=== PATIENT | female | born 1980 | race Caucasian/White ===

== ENCOUNTER 2020-12-28 14:20 | Emergency (ER) | payer MEDICAID ==
--- NOTE | 2020-12-28 14:43 | EDM.PDOC ---
ED HPI GENERAL MEDICAL PROBLEM - General Chief Complaint: Abdominal Pain Stated Complaint: AMBULANCE Time Seen by Provider: 12/28/20 14:42 Source of Information: Reports: Patient, EMS, Old Records, RN, RN Notes Reviewed History Limitations: Reports: No Limitations - History of Present Illness INITIAL COMMENTS - FREE TEXT/NARRATIVE: Pt arrives to ER by ambulance with c/o right flank pain, N/V/D, and generalized upper abdominal pain that began 4 days ago. Pt states pain started the day after she had a sore throat and chills. She admits to generalized body aches. Admits to difficulty keeping food and liquids down. Pt states she feels cool to touch, and has clammy skin. Denies chest pain or shortness of breath. She is worried about COVID. Duration: Day(s): (4), Constant Location: Reports: Abdomen, Back Quality: Reports: Ache Severity: Moderate Improves with: Reports: None Worsens with: Reports: Eating Associated Symptoms: Reports: No Other Symptoms - Related Data Allergies Allergy/AdvReac Type Severity Reaction Status Date / Time No Known Allergies Allergy Verified 12/28/20 15:10 Home Meds: Home Meds Clindamycin HCl 300 mg PO Q6H 9 Days #36 capsule 04/22/20 [Rx] DULoxetine [Cymbalta] 30 mg PO DAILY 04/22/20 [History] DULoxetine [Cymbalta] 60 mg PO DAILY 04/22/20 [History] Gabapentin [Neurontin] 1,200 mg PO TID 04/22/20 [History] Hydrocodone/Acetaminophen [[place] 5-325 Tablet] 1 each PO Q6H PRN #10 tablet 04/22/20 [Rx] Losartan [Cozaar] 50 mg PO DAILY 04/22/20 [History] atorvaSTATin [Lipitor] 10 mg PO BEDTIME 04/22/20 [History] cloNIDine [Catapres] 0.2 mg PO TID 04/22/20 [History] cloNIDine [Catapres] 0.3 mg PO DAILY 04/22/20 [History] glipiZIDE [Glipizide ER] 5 mg PO DAILY 04/22/20 [History] hydrOXYzine pamoate [Hydroxyzine Pamoate] 50 mg PO DAILY PRN 04/22/20 [History] metFORMIN HCl [Metformin HCl ER] 500 mg PO DAILY 04/22/20 [History] Acetaminophen [Tylenol Extra Strength] 1,000 mg PO QAM 09/13/20 [History] Acetaminophen [Tylenol Extra Strength] 1,500 mg PO ASDIRECTED 09/13/20 [History] Cyclobenzaprine [Flexeril] 5 mg PO ASDIRECTED PRN 09/13/20 [History] DULoxetine [Cymbalta] 30 mg PO DAILY 09/13/20 [History] DULoxetine [Cymbalta] 60 mg PO QPM 09/13/20 [History] Gabapentin [Neurontin] 1,200 mg PO TID 09/13/20 [History] Losartan [Cozaar] 25 mg PO DAILY 09/13/20 [History] Promethazine HCl/Codeine [Promethazine-Codeine Syrup] 10 ml PO Q8H PRN #240 ml 09/13/20 [Rx] atorvaSTATin [Lipitor] 10 mg PO BEDTIME 09/13/20 [History] cloNIDine [Catapres] 0.2 mg PO DAILY 09/13/20 [History] hydrOXYzine HCL [hydrOXYzine] 50 mg PO ASDIRECTED PRN 09/13/20 [History] Past Medical History HEENT History: Reports: None Cardiovascular History: Reports: Hypertension Respiratory History: Reports: Asthma, Bronchitis, Recurrent Gastrointestinal History: Reports: GERD, Other (See Below) Other Gastrointestinal History: "liver function not doing well according to her Dr back home" Genitourinary History: Reports: Neurogenic Bladder WATER RESOURCE 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 WATER RESOURCE SPECIALIST History: c-sections x 4 Musculoskeletal History: Reports: Fracture, Other (See Below) Other Musculoskeletal History: 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 Neurological History: Reports: Neuropathy, Peripheral Psychiatric History: Reports: Anxiety, Depression, Panic Attack Endocrine/Metabolic History: Reports: Diabetes, Type II, Obesity/BMI 30+ - Past Surgical History GI Surgical History: Reports: Cholecystectomy Social & Family History - Family History Family Medical History: No Pertinent Family History - Tobacco Use Tobacco Use Status *Q: Current Every Day Tobacco User Tobacco Use Within Last Twelve Months: Cigarettes - Caffeine Use Caffeine Use: Reports: Coffee, None, Soda - Living Situation & Occupation Living situation: Reports: with Family ED ROS GENERAL - Review of Systems Review Of Systems: Comprehensive ROS is negative, except as noted in HPI. ED EXAM, GI/ABD - Physical Exam Exam: See Below Exam Limited By: No Limitations General Appearance: Alert, No Apparent Distress, Obese. No: Active Emesis Eyes: Bilateral: Normal Appearance Ears: Normal External Exam, Normal Canal, Hearing Grossly Normal, Normal TMs Nose: Normal Inspection, Normal Mucosa, No Blood Throat/Mouth: Normal Lips, Normal Oropharynx, Normal Voice, No Airway Compromise, Other (Dry oral mucosa) Head: Atraumatic, Normocephalic Neck: Normal Inspection, Supple, Non-Tender, Full Range of Motion. No: Lymphadenopathy (L), Lymphadenopathy (R) Respiratory/Chest: No Respiratory Distress, Lungs Clear, Normal Breath Sounds, No Accessory Muscle Use, Chest Non-Tender Cardiovascular: Regular Rate, Rhythm, Tachycardia GI/Abdominal Exam: Normal Bowel Sounds, Soft, Tender (RUQ and RLQ ). No: Guarding, Rigid, Rebound Back Exam: CVA Tenderness (R). No: CVA Tenderness (L), Vertebral Tenderness Extremities: Normal Range of Motion, Non-Tender, Normal Capillary Refill, Pedal Edema Neurological: Alert, Oriented, No Motor/Sensory Deficits Psychiatric: Normal Mood Skin Exam: Warm, Dry, Intact, Normal Color, No Rash Course - Vital Signs Last Recorded V/S: Last Vital Signs Temp 95.4 F L 12/28/20 15:01 Pulse 85 12/28/20 15:01 Resp 20 12/28/20 15:01 BP 143/112 H 12/28/20 15:01 Pulse Ox 96 12/28/20 15:01 - Orders/Labs/Meds Orders: Active Orders 24 hr Category Date Time Status CULTURE STREP A CONFIRMATION [] Stat Lab 12/28/20 15:20 Results CULTURE URINE [] Stat Lab 12/28/20 15:35 Received STREP SCRN A RAPID W CULT CONF [] Stat Lab 12/28/20 15:20 Results cefTRIAXone [Rocephin] 2 gm Med 12/28/20 16:14 Active Sodium Chloride 0.9% [Normal Saline] 100 ml IV ONETIME Labs: Laboratory Tests 12/28/20 12/28/20 12/28/20 Range/Units 15:20 15:35 15:35 WBC (5.0-10.0) 10^3/uL RBC (4.2-5.4) 10^6/uL Hgb (12.0-16.0) g/dL Hct (37.0-47.0) % MCV (80-100) fL MCH (27.0-34.0) pg MCHC (33.0-35.0) g/dL Plt Count (150-450) 10^3/uL Neut % (Auto) (42.2-75.2) % Lymph % (Auto) (20.5-50.1) % [place] % (Auto) (2-8) % Eos % (Auto) (1.0-3.0) % Baso % (Auto) (0.0-1.0) % D-Dimer, Quantitative (0-400) ng/mL Sodium (136-145) mmol/L Potassium (3.5-5.1) mmol/L Chloride (98-107) mmol/L Carbon Dioxide (21-32) mmol/L Anion Gap (7-13) mEq/L BUN (7-18) mg/dL Creatinine (0.55-1.02) mg/dL Est Cr Clr Drug Dosing mL/min Estimated GFR (MDRD) BUN/Creatinine Ratio (No establ ref range) Glucose (74-99) mg/dL Lactic Acid (0.4-2.0) mmol/L Calcium (8.5-10.1) mg/dL Total Bilirubin (0.2-1.0) mg/dL AST (15-37) U/L ALT (14-59) U/L Alkaline Phosphatase (46-116) U/L C-Reactive Protein (0.0-0.9) mg/dL Total Protein (6.4-8.2) g/dL Albumin (3.4-5.0) g/dL Globulin Albumin/Globulin Ratio Amylase (25-115) U/L Lipase (73-393) U/L Urine Color Yellow (YELLOW) Urine Appearance Turbid (CLEAR) Urine pH 7.0 (5.0-9.0) Ur Specific [place] 1.020 (1.005-1.030) Urine Protein Negative (NEGATIVE) Urine Glucose (UA) Negative (NEGATIVE) Urine Ketones 15 H (NEGATIVE) Urine Occult Blood Small H (NEGATIVE) Urine Nitrite Positive H (NEGATIVE) Urine Bilirubin Negative (NEGATIVE) Urine Urobilinogen 0.2 (0.2-1.0) mg/dL Ur Leukocyte Esterase Negative (NEGATIVE) Urine RBC 10-20 H /HPF Urine WBC 5-10 H (0-5/HPF) /HPF Ur Epithelial Cells Few (NOT SEEN) /HPF Amorphous Sediment Few (NOT SEEN) /HPF Urine Bacteria Many H (0-FEW/HPF) /HPF Urine Mucus Few H (NOT SEEN) /LPF Urine HCG, Qual Negative Influenza Type A RNA Negative (NEGATIVE) Influenza Type B RNA Negative (NEGATIVE) SARS-CoV-2 RNA (JEANIE) Negative (NEGATIVE) 12/28/20 12/28/20 12/28/20 Range/Units 15:46 15:46 15:46 WBC 13.7 H (5.0-10.0) 10^3/uL RBC 5.32 (4.2-5.4) 10^6/uL Hgb 13.6 (12.0-16.0) g/dL Hct 44.2 (37.0-47.0) % MCV 83.1 (80-100) fL MCH 25.6 L (27.0-34.0) pg MCHC 30.8 L (33.0-35.0) g/dL Plt Count 379 (150-450) 10^3/uL Neut % (Auto) 70.6 (42.2-75.2) % Lymph % (Auto) 22.7 (20.5-50.1) % [place] % (Auto) 4.8 (2-8) % Eos % (Auto) 1.3 (1.0-3.0) % Baso % (Auto) 0.6 (0.0-1.0) % D-Dimer, Quantitative 287 (0-400) ng/mL Sodium 142 (136-145) mmol/L Potassium 3.8 (3.5-5.1) mmol/L Chloride 102 (98-107) mmol/L Carbon Dioxide 26 (21-32) mmol/L Anion Gap 17.8 H (7-13) mEq/L BUN 8 (7-18) mg/dL Creatinine 0.85 (0.55-1.02) mg/dL Est Cr Clr Drug Dosing 77.58 mL/min Estimated GFR (MDRD) > 60 BUN/Creatinine Ratio 9.4 (No establ ref range) Glucose 106 H (74-99) mg/dL Lactic Acid (0.4-2.0) mmol/L Calcium 8.9 (8.5-10.1) mg/dL Total Bilirubin 0.4 (0.2-1.0) mg/dL AST 31 (15-37) U/L ALT 23 (14-59) U/L Alkaline Phosphatase 127 H (46-116) U/L C-Reactive Protein 5.8 H (0.0-0.9) mg/dL Total Protein 9.2 H (6.4-8.2) g/dL Albumin 3.5 (3.4-5.0) g/dL Globulin 5.7 Albumin/Globulin Ratio 0.6 Amylase 35 (25-115) U/L Lipase 93 (73-393) U/L Urine Color (YELLOW) Urine Appearance (CLEAR) Urine pH (5.0-9.0) Ur Specific [place] (1.005-1.030) Urine Protein (NEGATIVE) Urine Glucose (UA) (NEGATIVE) Urine Ketones (NEGATIVE) Urine Occult Blood (NEGATIVE) Urine Nitrite (NEGATIVE) Urine Bilirubin (NEGATIVE) Urine Urobilinogen (0.2-1.0) mg/dL Ur Leukocyte Esterase (NEGATIVE) Urine RBC /HPF Urine WBC (0-5/HPF) /HPF Ur Epithelial Cells (NOT SEEN) /HPF Amorphous Sediment (NOT SEEN) /HPF Urine Bacteria (0-FEW/HPF) /HPF Urine Mucus (NOT SEEN) /LPF Urine HCG, Qual Influenza Type A RNA (NEGATIVE) Influenza Type B RNA (NEGATIVE) SARS-CoV-2 RNA (JEANIE) (NEGATIVE) 12/28/20 Range/Units 15:46 WBC (5.0-10.0) 10^3/uL RBC (4.2-5.4) 10^6/uL Hgb (12.0-16.0) g/dL Hct (37.0-47.0) % MCV (80-100) fL MCH (27.0-34.0) pg MCHC (33.0-35.0) g/dL Plt Count (150-450) 10^3/uL Neut % (Auto) (42.2-75.2) % Lymph % (Auto) (20.5-50.1) % [place] % (Auto) (2-8) % Eos % (Auto) (1.0-3.0) % Baso % (Auto) (0.0-1.0) % D-Dimer, Quantitative (0-400) ng/mL Sodium (136-145) mmol/L Potassium (3.5-5.1) mmol/L Chloride (98-107) mmol/L Carbon Dioxide (21-32) mmol/L Anion Gap (7-13) mEq/L BUN (7-18) mg/dL Creatinine (0.55-1.02) mg/dL Est Cr Clr Drug Dosing mL/min Estimated GFR (MDRD) BUN/Creatinine Ratio (No establ ref range) Glucose (74-99) mg/dL Lactic Acid 1.8 (0.4-2.0) mmol/L Calcium (8.5-10.1) mg/dL Total Bilirubin (0.2-1.0) mg/dL AST (15-37) U/L ALT (14-59) U/L Alkaline Phosphatase (46-116) U/L C-Reactive Protein (0.0-0.9) mg/dL Total Protein (6.4-8.2) g/dL Albumin (3.4-5.0) g/dL Globulin Albumin/Globulin Ratio Amylase (25-115) U/L Lipase (73-393) U/L Urine Color (YELLOW) Urine Appearance (CLEAR) Urine pH (5.0-9.0) Ur Specific [place] (1.005-1.030) Urine Protein (NEGATIVE) Urine Glucose (UA) (NEGATIVE) Urine Ketones (NEGATIVE) Urine Occult Blood (NEGATIVE) Urine Nitrite (NEGATIVE) Urine Bilirubin (NEGATIVE) Urine Urobilinogen (0.2-1.0) mg/dL Ur Leukocyte Esterase (NEGATIVE) Urine RBC /HPF Urine WBC (0-5/HPF) /HPF Ur Epithelial Cells (NOT SEEN) /HPF Amorphous Sediment (NOT SEEN) /HPF Urine Bacteria (0-FEW/HPF) /HPF Urine Mucus (NOT SEEN) /LPF Urine HCG, Qual Influenza Type A RNA (NEGATIVE) Influenza Type B RNA (NEGATIVE) SARS-CoV-2 RNA (JEANIE) (NEGATIVE) - Radiology Interpretation Free Text/Narrative:: XR Chest: no acute process per Rad. report. Departure - Departure Time of Disposition: 17:30 Disposition: Home, Self-Care 01 Condition: Good Clinical Impression: Acute pyelonephritis, Dehydration - Discharge Information *PRESCRIPTION DRUG MONITORING PROGRAM REVIEWED*: Not Applicable *COPY OF PRESCRIPTION DRUG MONITORING REPORT IN PATIENT LEDA: Not Applicable Instructions: Pyelonephritis, Adult, [id number], Nausea and Vomiting, Adult, [id number], Dehydration, Adult, [id number] Forms: ED Department Discharge Additional Instructions: Rx: Cipro 500mg Rx: Zofran 4mg Drink plenty of water or Pedialyte. Follow up in clinic in 7 to 10 days for recheck and repeat urine test. Return to ER or clinic if not improving as expected. Sepsis Event Note (ED) - Focused Exam Vital Signs: Vital Signs Temp Pulse Resp BP Pulse Ox 12/28/20 15:01 95.4 F L 85 20 143/112 H 96 - My Orders Last 24 Hours: My Active Orders 12/28/20 15:20 CULTURE STREP A CONFIRMATION [RM] Stat STREP SCRN A RAPID W CULT CONF [RM] Stat 12/28/20 15:35 CULTURE URINE [RM] Stat 12/28/20 16:14 cefTRIAXone [Rocephin] 2 gm Sodium Chloride 0.9% [Normal Saline] 100 ml IV ONETIME - Assessment/Plan Last 24 Hours: My Active Orders 12/28/20 15:20 CULTURE STREP A CONFIRMATION [RM] Stat STREP SCRN A RAPID W CULT CONF [RM] Stat 12/28/20 15:35 CULTURE URINE [RM] Stat 12/28/20 16:14 cefTRIAXone [Rocephin] 2 gm Sodium Chloride 0.9% [Normal Saline] 100 ml IV ONETIME
[2020-12-28] MEDS ORDERED: Ondansetron 4 MG/2 ML SDV IV ONE ×2 (15:20→17:01)
[2020-12-28] MEDS ORDERED: Sodium Chloride 0.9% 1,000 ML IV ONE (15:20)
--- NOTE | 2020-12-28 15:43 | CR ---
EXAMINATION: Chest 1V Frontal SEX: Female AGE: 40 years CLINICAL HISTORY: 40-year-old female with cough and fever. Interpretation: Generally poor inspiratory effort obese female crowding lung markings. AP bony thorax unremarkable. Normal cardiac silhouette unchanged except for technique and inspiration since 24 May 2012 comparison. No pulmonary vascular congestion, alveolar edema or dependent pleural effusion. No new lung mass, hilar lymphadenopathy or focal lobar consolidation. No peripheral "groundglass" interstitial densities. No pneumothorax or pneumomediastinum. CONCLUSION: No acute new cardiopulmonary abnormality.
[2020-12-28 16:10] LABS: CORONAVIRUS COVID-19 NAA NEGATIVE (NEGATIVE)
[2020-12-28 16:11] LABS: ANION GAP 17.8 mEq/L (7-13); CHLORIDE,CL 102 mmol/L (98-107); SODIUM,NA 142 mmol/L (136-145)
[2020-12-28] MEDS ORDERED: cefTRIAXone 2 GM in Sodium Chloride 0.9% 100 ML IV ONE (16:14)
[2020-12-28] MEDS ORDERED: Acetaminophen 325 MG Tab PO ONE (16:15)
[2020-12-28] MEDS ORDERED: HYDROmorphone 0.5 MG/0.5 ML Syringe IVPUSH ONE (16:16)
== END 2020-12-28 17:45 | disposition home or self-care (01) ==
LOC: DL.ED 14:20
DX: N10 Acute pyelonephritis (principal); E86.0 Dehydration; I10 Essential (primary) hypertension; J45.909 Unspecified asthma, uncomplicated; E11.42 Type 2 diabetes mellitus with diabetic polyneuropathy; E66.9 Obesity, unspecified; Z68.43 Body mass index [BMI] 50.0-59.9, adult; Z20.822 Contact with and (suspected) exposure to COVID-19; Z72.0 Tobacco use
CPT/HCPCS: 0240U; 36415; 71045; 80053; 81001; 81025; 82150; 83605; 83690; 85025; 85379; 86140; 87081; 87086; 87088; 87186; 87430; 96365; 96375; 96376; 99284; A9270; J0696; J1170; J2405; J7030; 99283

== ENCOUNTER 2021-01-17 18:15 | Emergency (ER) | payer MEDICAID ==
[2021-01-17] MEDS ORDERED: Ondansetron 4 MG Tab.DIS PO ONE (18:16)
[2021-01-17 19:55] LABS: ANION GAP 16.1 mEq/L (7-13); CHLORIDE,CL 101 mmol/L (98-107); SODIUM,NA 141 mmol/L (136-145)
[2021-01-17] MEDS ORDERED: Sodium Chloride 0.9% 500 ML IV ONE (19:58)
[2021-01-17] MEDS ORDERED: Ondansetron 4 MG/2 ML SDV IVPUSH ONE (19:58)
[2021-01-17] MEDS ORDERED: cefTRIAXone 2 GM in Sodium Chloride 0.9% 100 ML IV ONE (20:00)
--- NOTE | 2021-01-17 20:24 | EDM.PDOC ---
ED HPI GENERAL MEDICAL PROBLEM - General Chief Complaint: Genitourinary Problem Stated Complaint: KIDNEY PROBLEMS Time Seen by Provider: 01/17/21 19:50 Source of Information: Reports: Patient History Limitations: Reports: No Limitations - History of Present Illness INITIAL COMMENTS - FREE TEXT/NARRATIVE: ED with c/o urinary frequency left flank pain, nausea, sweats headache starting yesterday, similar with previous kidney infection one month ago. No vomiting or diarrhea. Slight sore throat this am. Cough, smoker. No SOB. - Related Data Allergies Allergy/AdvReac Type Severity Reaction Status Date / Time No Known Allergies Allergy Verified 01/17/21 19:50 Home Meds: Home Meds Clindamycin HCl 300 mg PO Q6H 9 Days #36 capsule 04/22/20 [Rx] DULoxetine [Cymbalta] 30 mg PO DAILY 04/22/20 [History] DULoxetine [Cymbalta] 60 mg PO DAILY 04/22/20 [History] Gabapentin [Neurontin] 1,200 mg PO TID 04/22/20 [History] Hydrocodone/Acetaminophen [[place] 5-325 Tablet] 1 each PO Q6H PRN #10 tablet 04/22/20 [Rx] Losartan [Cozaar] 50 mg PO DAILY 04/22/20 [History] atorvaSTATin [Lipitor] 10 mg PO BEDTIME 04/22/20 [History] cloNIDine [Catapres] 0.2 mg PO TID 04/22/20 [History] cloNIDine [Catapres] 0.3 mg PO DAILY 04/22/20 [History] glipiZIDE [Glipizide ER] 5 mg PO DAILY 04/22/20 [History] hydrOXYzine pamoate [Hydroxyzine Pamoate] 50 mg PO DAILY PRN 04/22/20 [History] metFORMIN HCl [Metformin HCl ER] 500 mg PO DAILY 04/22/20 [History] Acetaminophen [Tylenol Extra Strength] 1,000 mg PO QAM 09/13/20 [History] Acetaminophen [Tylenol Extra Strength] 1,500 mg PO ASDIRECTED 09/13/20 [History] Cyclobenzaprine [Flexeril] 5 mg PO ASDIRECTED PRN 09/13/20 [History] DULoxetine [Cymbalta] 30 mg PO DAILY 09/13/20 [History] DULoxetine [Cymbalta] 60 mg PO QPM 09/13/20 [History] Gabapentin [Neurontin] 1,200 mg PO TID 09/13/20 [History] Losartan [Cozaar] 25 mg PO DAILY 09/13/20 [History] Promethazine HCl/Codeine [Promethazine-Codeine Syrup] 10 ml PO Q8H PRN #240 ml 09/13/20 [Rx] atorvaSTATin [Lipitor] 10 mg PO BEDTIME 09/13/20 [History] cloNIDine [Catapres] 0.2 mg PO DAILY 09/13/20 [History] hydrOXYzine HCL [hydrOXYzine] 50 mg PO ASDIRECTED PRN 09/13/20 [History] Past Medical History HEENT History: Reports: None Cardiovascular History: Reports: High Cholesterol, Hypertension Respiratory History: Reports: Asthma, Bronchitis, Recurrent Gastrointestinal History: Reports: GERD, Other (See Below) Other Gastrointestinal History: "liver function not doing well according to her Dr back home" Genitourinary History: Reports: Neurogenic Bladder, Pyelonephritis 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 ATHLETIC TRAINER History: c-sections x 4 Musculoskeletal History: Reports: Fracture, Other (See Below) Other Musculoskeletal History: 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 Neurological History: Reports: Neuropathy, Peripheral Psychiatric History: Reports: Anxiety, Depression, Panic Attack Endocrine/Metabolic History: Reports: Diabetes, Type II, Obesity/BMI 30+ - Past Surgical History HEENT Surgical History: Reports: None Cardiovascular Surgical History: Reports: None Respiratory Surgical History: Reports: None GI Surgical History: Reports: Cholecystectomy Female Surgical History: Reports: Section Musculoskeletal Surgical History: Reports: ORIF Other Musculoskeletal Surgeries/Procedures:: L tibial ORIF 2017 Social & Family History - Family History Family Medical History: No Pertinent Family History - Tobacco Use Tobacco Use Status *Q: Current Every Day Tobacco User Years of Tobacco use: 24 Packs/Tins Daily: 1 - Caffeine Use Caffeine Use: Reports: None - Recreational Drug Use Recreational Drug Use: No - Living Situation & Occupation Living situation: Reports: with Family ED ROS GENERAL - Review of Systems Review Of Systems: Comprehensive ROS is negative, except as noted in HPI. ED EXAM, RENAL/ - Physical Exam Exam: See Below Exam Limited By: No Limitations General Appearance: Alert, Obese, Other (appears much older than stated afe) Eye Exam: Bilateral Eye: EOMI Ears: Normal External Exam, Hearing Grossly Normal, Normal TMs Nose: Normal Inspection Throat/Mouth: Normal Inspection Head: Atraumatic, Normocephalic Neck: Normal Inspection Respiratory/Chest: No Respiratory Distress, Lungs Clear, Normal Breath Sounds Cardiovascular: Regular Rate, Rhythm GI/Abdominal: Normal Bowel Sounds, Soft Back Exam: Full Range of Motion Neurological: Alert, Oriented, Normal Cognition Skin Exam: Warm, Dry, Intact, Normal Color Course - Vital Signs Last Recorded V/S: Last Vital Signs Temp 96.7 F L 01/17/21 19:50 Pulse 95 01/17/21 19:50 Resp 20 01/17/21 19:50 BP 127/87 01/17/21 19:50 Pulse Ox 97 01/17/21 19:50 - Orders/Labs/Meds Orders: Active Orders 24 hr Category Date Time Status CULTURE BLOOD [BC] Stat Lab 01/17/21 20:07 Received CULTURE URINE [RM] Urgent Lab 01/17/21 19:35 Received Labs: Laboratory Tests 01/17/21 01/17/21 01/17/21 Range/Units 19:23 19:23 19:35 WBC 13.4 H (5.0-10.0) 10^3/uL RBC 4.93 (4.2-5.4) 10^6/uL Hgb 12.1 D (12.0-16.0) g/dL Hct 41.0 (37.0-47.0) % MCV 83.2 (80-100) fL MCH 24.5 L (27.0-34.0) pg MCHC 29.5 L (33.0-35.0) g/dL Plt Count 394 (150-450) 10^3/uL Neut % (Auto) 69.8 (42.2-75.2) % Lymph % (Auto) 23.4 (20.5-50.1) % [place] % (Auto) 4.7 (2-8) % Eos % (Auto) 1.7 (1.0-3.0) % Baso % (Auto) 0.4 (0.0-1.0) % Sodium 141 (136-145) mmol/L Potassium 4.1 (3.5-5.1) mmol/L Chloride 101 (98-107) mmol/L Carbon Dioxide 28 (21-32) mmol/L Anion Gap 16.1 H (7-13) mEq/L BUN 10 (7-18) mg/dL Creatinine 0.97 (0.55-1.02) mg/dL Est Cr Clr Drug Dosing TNP Estimated GFR (MDRD) > 60 BUN/Creatinine Ratio 10.3 (No establ ref range) Glucose 174 H (74-99) mg/dL Lactic Acid (0.4-2.0) mmol/L Calcium 8.6 (8.5-10.1) mg/dL Total Bilirubin 0.3 (0.2-1.0) mg/dL AST 23 (15-37) U/L ALT 23 (14-59) U/L Alkaline Phosphatase 116 (46-116) U/L Total Protein 7.9 (6.4-8.2) g/dL Albumin 3.0 L (3.4-5.0) g/dL Globulin 4.9 Albumin/Globulin Ratio 0.61 Urine Color Yellow (YELLOW) Urine Appearance Cloudy (CLEAR) Urine pH 6.0 (5.0-9.0) Ur Specific [place] 1.025 (1.005-1.030) Urine Protein Trace H (NEGATIVE) Urine Glucose (UA) Negative (NEGATIVE) Urine Ketones Negative (NEGATIVE) Urine Occult Blood Negative (NEGATIVE) Urine Nitrite Positive H (NEGATIVE) Urine Bilirubin Negative (NEGATIVE) Urine Urobilinogen 0.2 (0.2-1.0) mg/dL Ur Leukocyte Esterase Negative (NEGATIVE) Urine RBC 0-5 /HPF Urine WBC 5-10 H (0-5/HPF) /HPF Ur Epithelial Cells Rare (NOT SEEN) /HPF Amorphous Sediment Few (NOT SEEN) /HPF Urine Bacteria Many H (0-FEW/HPF) /HPF Urine Mucus Few H (NOT SEEN) /LPF Influenza Type A RNA (NEGATIVE) Influenza Type B RNA (NEGATIVE) SARS-CoV-2 RNA (JEANIE) (NEGATIVE) 01/17/21 01/17/21 Range/Units 19:46 20:07 WBC (5.0-10.0) 10^3/uL RBC (4.2-5.4) 10^6/uL Hgb (12.0-16.0) g/dL Hct (37.0-47.0) % MCV (80-100) fL MCH (27.0-34.0) pg MCHC (33.0-35.0) g/dL Plt Count (150-450) 10^3/uL Neut % (Auto) (42.2-75.2) % Lymph % (Auto) (20.5-50.1) % [place] % (Auto) (2-8) % Eos % (Auto) (1.0-3.0) % Baso % (Auto) (0.0-1.0) % Sodium (136-145) mmol/L Potassium (3.5-5.1) mmol/L Chloride (98-107) mmol/L Carbon Dioxide (21-32) mmol/L Anion Gap (7-13) mEq/L BUN (7-18) mg/dL Creatinine (0.55-1.02) mg/dL Est Cr Clr Drug Dosing Estimated GFR (MDRD) BUN/Creatinine Ratio (No establ ref range) Glucose (74-99) mg/dL Lactic Acid 1.6 (0.4-2.0) mmol/L Calcium (8.5-10.1) mg/dL Total Bilirubin (0.2-1.0) mg/dL AST (15-37) U/L ALT (14-59) U/L Alkaline Phosphatase (46-116) U/L Total Protein (6.4-8.2) g/dL Albumin (3.4-5.0) g/dL Globulin Albumin/Globulin Ratio Urine Color (YELLOW) Urine Appearance (CLEAR) Urine pH (5.0-9.0) Ur Specific [place] (1.005-1.030) Urine Protein (NEGATIVE) Urine Glucose (UA) (NEGATIVE) Urine Ketones (NEGATIVE) Urine Occult Blood (NEGATIVE) Urine Nitrite (NEGATIVE) Urine Bilirubin (NEGATIVE) Urine Urobilinogen (0.2-1.0) mg/dL Ur Leukocyte Esterase (NEGATIVE) Urine RBC /HPF Urine WBC (0-5/HPF) /HPF Ur Epithelial Cells (NOT SEEN) /HPF Amorphous Sediment (NOT SEEN) /HPF Urine Bacteria (0-FEW/HPF) /HPF Urine Mucus (NOT SEEN) /LPF Influenza Type A RNA Negative (NEGATIVE) Influenza Type B RNA Negative (NEGATIVE) SARS-CoV-2 RNA (JEANIE) Negative (NEGATIVE) Meds: Medications Discontinued Medications Generic Name Dose Route Start Last Admin Trade Name Freq PRN Reason Stop Dose Admin Sodium Chloride 500 mls @ 999 mls/hr 01/17/21 19:58 01/17/21 20:58 Normal Saline IV 01/17/21 20:28 500 mls/hr .BOLUS ONE Infusion Ceftriaxone Sodium 2 gm/ 100 mls @ 200 mls/hr 01/17/21 20:00 01/17/21 20:17 Sodium Chloride IV 01/17/21 20:29 200 mls/hr ONETIME ONE Administration Ondansetron HCl 4 mg 01/17/21 19:58 01/17/21 20:17 Ondansetron 4 Mg/2 Ml Sdv IVPUSH 01/17/21 19:59 4 mg ONETIME ONE Administration Departure - Departure Time of Disposition: 21:17 Disposition: Home, Self-Care 01 Condition: Good Clinical Impression: UTI, Urinary tract infectious disease - Discharge Information *PRESCRIPTION DRUG MONITORING PROGRAM REVIEWED*: No *COPY OF PRESCRIPTION DRUG MONITORING REPORT IN PATIENT LEDA: No Instructions: Urinary Tract Infection, Adult Forms: ED Department Discharge Additional Instructions: increase fluids monitor blood sugars macrobid 2 times dialy for one week clinic follow Sunday, sooner if symptoms worsen tylenol 650mg every 6 hours as needed for discomfort zofran 4mg ODT every 4 hours as needed for nausea #3 Sepsis Event Note (ED) - Evaluation Sepsis Screening Result: No Definite Risk - Focused Exam Vital Signs: Vital Signs Temp Pulse Resp BP Pulse Ox 01/17/21 19:50 96.7 F L 95 20 127/87 97 - My Orders Last 24 Hours: My Active Orders 01/17/21 19:35 CULTURE URINE [RM] Urgent 01/17/21 20:07 CULTURE BLOOD [BC] Stat - Assessment/Plan Last 24 Hours: My Active Orders 01/17/21 19:35 CULTURE URINE [RM] Urgent 01/17/21 20:07 CULTURE BLOOD [BC] Stat
[2021-01-17 20:29] LABS: CORONAVIRUS COVID-19 NAA NEGATIVE (NEGATIVE)
[2021-01-17] MEDS ORDERED: Acetaminophen 325 MG Tab PO ONE (21:26)
[2021-01-17] MEDS ORDERED: Ondansetron 4 MG Tab.DIS ONE (21:28)
== END 2021-01-17 21:35 | disposition home or self-care (01) ==
LOC: DL.ED 18:15
DX: N39.0 Urinary tract infection, site not specified (principal); E78.00 Pure hypercholesterolemia, unspecified; I10 Essential (primary) hypertension; J45.909 Unspecified asthma, uncomplicated; E11.42 Type 2 diabetes mellitus with diabetic polyneuropathy; E66.9 Obesity, unspecified; Z68.43 Body mass index [BMI] 50.0-59.9, adult; Z72.0 Tobacco use; Z79.84 Long term (current) use of oral hypoglycemic drugs; Z79.899 Other long term (current) drug therapy; Z20.822 Contact with and (suspected) exposure to COVID-19
CPT/HCPCS: 0240U; 36415; 80053; 81001; 83605; 85025; 87040; 87086; 87088; 87186; 96365; 96375; 99284; A9270; J0696; J2405; J7040

== ENCOUNTER 2021-03-19 02:39 | Emergency (ER) | payer MEDICAID ==
--- NOTE | 2021-03-19 03:25 | EDM.PDOC ---
ED HPI GENERAL MEDICAL PROBLEM - General Chief Complaint: Gastrointestinal Problem Stated Complaint: DIARRHEA, BLOOD CLOTS, LOW URINATION, PAIN STOMACH Time Seen by Provider: 03/19/21 03:24 Source of Information: Reports: Patient, Old Records, RN, RN Notes Reviewed History Limitations: Reports: No Limitations - History of Present Illness INITIAL COMMENTS - FREE TEXT/NARRATIVE: Sarah is a 40 y/o female who presents to the ED via personal vehicle with daughter for complaints of dysuria, abdominal pain, and diarrhea. She reports these symptoms began about two days ago and have worsened since their onset. She characterizes the pain to her LLQ as sharp in nature and reports it waxes and wanes. She notes with the dysuria she has experienced inability to fully void, however she states she has only tried twice as she feels she is dehydrated from her loose stools. She has been able to eat meals and drink fluids without complication. Additionally, the patient reports she started her menses about four days ago and has noticed an increase in the output of her menstruation; she has been changing her pad about every 3-4 hours. She reports a recent bladder/kidney infection in December 2020 from which she recovered without complication. She denies shaking chills, palpitations, dyspepsia, vomiting, melena, or hematochezia. The patient states she feels as though she had a fever last night but, "...was too tired to check it with a thermometer." She attests to smoking one pack of cigarettes per day; she denies alcohol or recreational drug use. Lower Abdomen Pain Score (Numeric/FACES): 9 - Related Data Allergies Allergy/AdvReac Type Severity Reaction Status Date / Time No Known Allergies Allergy Verified 03/19/21 03:09 Home Meds: Home Meds Clindamycin HCl 300 mg PO Q6H 9 Days #36 capsule 04/22/20 [Rx] DULoxetine [Cymbalta] 30 mg PO DAILY 04/22/20 [History] DULoxetine [Cymbalta] 60 mg PO DAILY 04/22/20 [History] Gabapentin [Neurontin] 1,200 mg PO TID 04/22/20 [History] Hydrocodone/Acetaminophen [Valentine 5-325 Tablet] 1 each PO Q6H PRN #10 tablet 04/22/20 [Rx] Losartan [Cozaar] 50 mg PO DAILY 04/22/20 [History] atorvaSTATin [Lipitor] 10 mg PO BEDTIME 04/22/20 [History] cloNIDine [Catapres] 0.2 mg PO TID 04/22/20 [History] cloNIDine [Catapres] 0.3 mg PO DAILY 04/22/20 [History] glipiZIDE [Glipizide ER] 5 mg PO DAILY 04/22/20 [History] hydrOXYzine pamoate [Hydroxyzine Pamoate] 50 mg PO DAILY PRN 04/22/20 [History] metFORMIN HCl [Metformin HCl ER] 500 mg PO DAILY 04/22/20 [History] Acetaminophen [Tylenol Extra Strength] 1,000 mg PO QAM 09/13/20 [History] Acetaminophen [Tylenol Extra Strength] 1,500 mg PO ASDIRECTED 09/13/20 [History] Cyclobenzaprine [Flexeril] 5 mg PO ASDIRECTED PRN 09/13/20 [History] DULoxetine [Cymbalta] 30 mg PO DAILY 09/13/20 [History] DULoxetine [Cymbalta] 60 mg PO QPM 09/13/20 [History] Gabapentin [Neurontin] 1,200 mg PO TID 09/13/20 [History] Losartan [Cozaar] 25 mg PO DAILY 09/13/20 [History] Promethazine HCl/Codeine [Promethazine-Codeine Syrup] 10 ml PO Q8H PRN #240 ml 09/13/20 [Rx] atorvaSTATin [Lipitor] 10 mg PO BEDTIME 09/13/20 [History] cloNIDine [Catapres] 0.2 mg PO DAILY 09/13/20 [History] hydrOXYzine HCL [hydrOXYzine] 50 mg PO ASDIRECTED PRN 09/13/20 [History] Past Medical History HEENT History: Reports: None Cardiovascular History: Reports: High Cholesterol, Hypertension Respiratory History: Reports: Asthma, Bronchitis, Recurrent Gastrointestinal History: Reports: GERD, Other (See Below) Other Gastrointestinal History: "liver function not doing well according to her Dr back home" Genitourinary History: Reports: Neurogenic Bladder, Pyelonephritis [employer]IOR [employer] DIRECTOR History: Reports: Other [employer]IOR [employer]AT[employer] DIRECTOR History: c-sections x 4 Musculoskeletal History: Reports: Fracture, Other (See Below) Other Musculoskeletal History: 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 Neurological History: Reports: Neuropathy, Peripheral Psychiatric History: Reports: Anxiety, Depression, Panic Attack Endocrine/Metabolic History: Reports: Diabetes, Type II, Obesity/BMI 30+ - Past Surgical History HEENT Surgical History: Reports: None Cardiovascular Surgical History: Reports: None Respiratory Surgical History: Reports: None GI Surgical History: Reports: Cholecystectomy Female Surgical History: Reports: Section Musculoskeletal Surgical History: Reports: ORIF Other Musculoskeletal Surgeries/Procedures:: L tibial ORIF 2017 Social & Family History - Family History Family Medical History: No Pertinent Family History - Tobacco Use Tobacco Use Status *Q: Current Every Day Tobacco User Years of Tobacco use: 22 Packs/Tins Daily: 1 - Caffeine Use Caffeine Use: Reports: Soda - Recreational Drug Use Recreational Drug Use: No - Living Situation & Occupation Living situation: Reports: with Family ED ROS GENERAL - Review of Systems Review Of Systems: Comprehensive ROS is negative, except as noted in HPI. ED EXAM, RENAL/ - Physical Exam Exam: See Below Exam Limited By: No Limitations General Appearance: Alert, No Apparent Distress Throat/Mouth: Normal Voice, No Airway Compromise. No: Normal Lips (Dry, cracked), Normal Oropharynx (Dry mucous membranes) Head: Atraumatic, Normocephalic Respiratory/Chest: No Respiratory Distress, No Accessory Muscle Use, Chest Non- Tender, Rales (To bilateral mid-lobes). No: Crackles, Rhonchi, Wheezing, Stridor Cardiovascular: Normal Peripheral Pulses, Regular Rate, Rhythm, No Edema, No Gallop, No JVD, No Murmur, No Rub, Tachycardia GI/Abdominal: Soft, No Distention, No Abnormal Bruit, No Mass, Pelvis Stable, Tender (To palpation of bilateral lower quadrants), Abnormal Bowel Sounds (Hypoactive bowel sounds). No: Guarding, Rigid, Rebound (Female) Exam: Deferred Rectal (Female) Exam: Deferred Back Exam: Normal Inspection, Full Range of Motion. No: CVA Tenderness (L), CVA Tenderness (R) Extremities: Normal Inspection, Normal Range of Motion, Non-Tender, Normal Capillary Refill, No Pedal Edema Neurological: Alert, Oriented, CN II-XII Intact, Normal Cognition, No Motor/Sensory Deficits Psychiatric: Normal Affect, Normal Mood Skin Exam: Warm, Dry, Intact, Normal Color, No Rash. No: Ecchymosis, Erythema, Jaundice, Mottled, Pallor, Petechiae Course - Vital Signs Last Recorded V/S: Last Vital Signs Temp 97.0 F 03/19/21 03:03 Pulse 104 H 03/19/21 03:03 Resp 20 03/19/21 03:03 BP 121/79 03/19/21 03:11 Pulse Ox 98 03/19/21 03:03 - Orders/Labs/Meds Orders: Active Orders 24 hr Category Date Time Status CULTURE URINE [RM] Routine Lab 03/19/21 02:50 Received Labs: Laboratory Tests 03/19/21 03/19/21 03/19/21 Range/Units 02:50 02:50 03:45 WBC 14.0 H (5.0-10.0) 10^3/uL RBC 4.46 (4.2-5.4) 10^6/uL Hgb 10.6 L D (12.0-16.0) g/dL Hct 36.3 L (37.0-47.0) % MCV 81.4 (80-100) fL MCH 23.8 L (27.0-34.0) pg MCHC 29.2 L (33.0-35.0) g/dL Plt Count 382 (150-450) 10^3/uL Neut % (Auto) 71.8 (42.2-75.2) % Lymph % (Auto) 19.8 L (20.5-50.1) % [place] % (Auto) 5.5 (2-8) % Eos % (Auto) 2.4 (1.0-3.0) % Baso % (Auto) 0.5 (0.0-1.0) % Sodium (136-145) mmol/L Potassium (3.5-5.1) mmol/L Chloride (98-107) mmol/L Carbon Dioxide (21-32) mmol/L Anion Gap (7-13) mEq/L BUN (7-18) mg/dL Creatinine (0.55-1.02) mg/dL Est Cr Clr Drug Dosing mL/min Estimated GFR (MDRD) BUN/Creatinine Ratio (No establ ref range) Glucose (70-99) mg/dL Lactic Acid (0.4-2.0) mmol/L Calcium (8.5-10.1) mg/dL Total Bilirubin (0.2-1.0) mg/dL AST (15-37) U/L ALT (14-59) U/L Alkaline Phosphatase (46-116) U/L Total Protein (6.4-8.2) g/dL Albumin (3.4-5.0) g/dL Globulin Albumin/Globulin Ratio Urine Color Red (YELLOW) Urine Appearance Cloudy (CLEAR) Urine pH 6.5 (5.0-9.0) Ur Specific [place] 1.015 (1.005-1.030) Urine Protein 30 H (NEGATIVE) Urine Glucose (UA) Negative (NEGATIVE) Urine Ketones Negative (NEGATIVE) Urine Occult Blood Large H (NEGATIVE) Urine Nitrite Negative (NEGATIVE) Urine Bilirubin Negative (NEGATIVE) Urine Urobilinogen 0.2 (0.2-1.0) mg/dL Ur Leukocyte Esterase Trace H (NEGATIVE) Urine RBC Semi-packed H /HPF Urine WBC 5-10 H (0-5/HPF) /HPF Ur Epithelial Cells Moderate H (NOT SEEN) /HPF Urine Bacteria Moderate H (0-FEW/HPF) /HPF Urine HCG, Qual Negative 03/19/21 03/19/21 Range/Units 03:45 03:45 WBC (5.0-10.0) 10^3/uL RBC (4.2-5.4) 10^6/uL Hgb (12.0-16.0) g/dL Hct (37.0-47.0) % MCV (80-100) fL MCH (27.0-34.0) pg MCHC (33.0-35.0) g/dL Plt Count (150-450) 10^3/uL Neut % (Auto) (42.2-75.2) % Lymph % (Auto) (20.5-50.1) % [place] % (Auto) (2-8) % Eos % (Auto) (1.0-3.0) % Baso % (Auto) (0.0-1.0) % Sodium 138 (136-145) mmol/L Potassium 3.4 L (3.5-5.1) mmol/L Chloride 101 (98-107) mmol/L Carbon Dioxide 28 (21-32) mmol/L Anion Gap 12.4 (7-13) mEq/L BUN 10 (7-18) mg/dL Creatinine 0.84 (0.55-1.02) mg/dL Est Cr Clr Drug Dosing 78.51 mL/min Estimated GFR (MDRD) > 60 BUN/Creatinine Ratio 11.9 (No establ ref range) Glucose 156 H (70-99) mg/dL Lactic Acid 1.4 (0.4-2.0) mmol/L Calcium 7.7 L (8.5-10.1) mg/dL Total Bilirubin 0.3 (0.2-1.0) mg/dL AST 20 (15-37) U/L ALT 22 (14-59) U/L Alkaline Phosphatase 99 (46-116) U/L Total Protein 7.1 (6.4-8.2) g/dL Albumin 2.5 L (3.4-5.0) g/dL Globulin 4.6 Albumin/Globulin Ratio 0.54 Urine Color (YELLOW) Urine Appearance (CLEAR) Urine pH (5.0-9.0) Ur Specific [place] (1.005-1.030) Urine Protein (NEGATIVE) Urine Glucose (UA) (NEGATIVE) Urine Ketones (NEGATIVE) Urine Occult Blood (NEGATIVE) Urine Nitrite (NEGATIVE) Urine Bilirubin (NEGATIVE) Urine Urobilinogen (0.2-1.0) mg/dL Ur Leukocyte Esterase (NEGATIVE) Urine RBC /HPF Urine WBC (0-5/HPF) /HPF Ur Epithelial Cells (NOT SEEN) /HPF Urine Bacteria (0-FEW/HPF) /HPF Urine HCG, Qual Meds: Medications Discontinued Medications Generic Name Dose Route Start Last Admin Trade Name Freq PRN Reason Stop Dose Admin Ciprofloxacin 500 mg 03/19/21 04:35 03/19/21 04:44 Ciprofloxacin 500 Mg Tab PO 03/19/21 04:36 500 mg ONETIME ONE Administration Sodium Chloride 1,000 mls @ 999 mls/hr 03/19/21 03:39 03/19/21 03:48 Normal Saline IV 03/19/21 04:39 999 mls/hr .BOLUS ONE Administration - Re-Assessments/Exams Free Text/Narrative Re-Assessment/Exam: 03/19/21 NS 1L bolus initiated. UA positive for Leuk Esterase, WBCs, and RBCs; will treat empirically with Ciprofloxacin. WBC elevated at 14 with no left shift. Hgb reduced at 10.6, patient states she is currently menstruating and her volume is more than normal; she is on day 4 of her cycle. Liver and kidney function appropriate via CMP; potassium slightly reduced at 3.4. Hcg negative. Findings of examination and lab work reviewed with patient and her daughter. Discussed supportive cares for UTI as well as red flag signs and symptoms which would warrant reevaluation. Patient and daughter verbalized understanding and agreement with the plan of care. Departure - Departure Time of Disposition: 04:40 Disposition: Home, Self-Care 01 Condition: Good Clinical Impression: Diarrhea, Dehydration Urinary tract infection Qualifiers: Urinary tract infection type: acute cystitis Hematuria presence: without hematuria Qualified Code(s): N30.00 - Acute cystitis without hematuria Heavy menses Qualifiers: Menorrhagia type: with regular cycle Qualified Code(s): N92.0 - Excessive and frequent menstruation with regular cycle - Discharge Information *PRESCRIPTION DRUG MONITORING PROGRAM REVIEWED*: Not Applicable *COPY OF PRESCRIPTION DRUG MONITORING REPORT IN PATIENT LEDA: Not Applicable Instructions: Urinary Tract Infection, Adult, [id number], Dehydration, Adult, [id number], Diarrhea, Adult, [id number] Forms: ED Department Discharge Additional Instructions: Rx: Ciprofloxacin 1.) Continue to drink plenty of fluids to stay hydrated. 2.) Eat small, snack-like meals that are easy to digest; applesauce, bananas, toast, crackers, etc.. 3.) Continue to monitor your menstrual volume, should you continue to experience significant volume during your next cycle follow up with your primary care provider. Sepsis Event Note (ED) - Evaluation Sepsis Screening Result: No Definite Risk - Focused Exam Vital Signs: Vital Signs Temp Pulse Resp BP Pulse Ox 03/19/21 03:11 121/79 03/19/21 03:03 97.0 F 104 H 20 98 - My Orders Last 24 Hours: My Active Orders 03/19/21 02:50 CULTURE URINE [RM] Routine - Assessment/Plan Last 24 Hours: My Active Orders 03/19/21 02:50 CULTURE URINE [RM] Routine
[2021-03-19] MEDS ORDERED: Sodium Chloride 0.9% 1,000 ML IV ONE (03:39)
[2021-03-19 04:07] LABS: ANION GAP 12.4 mEq/L (7-13); CHLORIDE,CL 101 mmol/L (98-107); SODIUM,NA 138 mmol/L (136-145)
[2021-03-19] MEDS ORDERED: Ciprofloxacin 500 MG Tab PO ONE (04:35)
== END 2021-03-19 04:51 | disposition home or self-care (01) ==
LOC: DL.ED 02:39
DX: N30.00 Acute cystitis without hematuria (principal); N92.0 Excessive and frequent menstruation with regular cycle; E86.0 Dehydration; R19.7 Diarrhea, unspecified; E78.00 Pure hypercholesterolemia, unspecified; I10 Essential (primary) hypertension; J45.909 Unspecified asthma, uncomplicated; K21.9 Gastro-esophageal reflux disease without esophagitis; E11.42 Type 2 diabetes mellitus with diabetic polyneuropathy; E66.9 Obesity, unspecified; Z68.43 Body mass index [BMI] 50.0-59.9, adult; Z79.84 Long term (current) use of oral hypoglycemic drugs; Z72.0 Tobacco use
CPT/HCPCS: 36415; 80053; 81001; 81025; 83605; 85025; 87086; 87088; 87186; 99284; A9270; J7030

== ENCOUNTER 2021-11-02 14:30 | Emergency (ER) | payer BC, MEDICAID ==
[2021-11-02 16:17] LABS: CORONAVIRUS COVID-19 NAA NEGATIVE (NEGATIVE); RESPIRATORY SYNCYTIAL VIR NAA NEGATIVE (NEGATIVE)
== END 2021-11-02 18:00 | disposition home or self-care (01) ==
LOC: DL.ED 14:30
DX: J20.9 Acute bronchitis, unspecified (principal); R60.0 Localized edema; E78.00 Pure hypercholesterolemia, unspecified; I10 Essential (primary) hypertension; E11.9 Type 2 diabetes mellitus without complications; E66.9 Obesity, unspecified; Z68.43 Body mass index [BMI] 50.0-59.9, adult; Z79.899 Other long term (current) drug therapy; Z20.822 Contact with and (suspected) exposure to COVID-19
CPT/HCPCS: 0241U; 99283

== ENCOUNTER 2022-01-02 11:48 | Emergency (ER) | payer BC, MEDICAID | END 2022-01-02 14:24 | disposition left against medical advice (07) | LOC: DL.ED 11:48 | DX: M25.511 Pain in right shoulder (principal); M25.512 Pain in left shoulder; Z53.21 Procedure and treatment not carried out due to patient leaving prior to being seen by health care provider ==

== ENCOUNTER 2022-01-15 22:56 | Emergency (ER) | payer MEDICAID ==
[2022-01-15 23:46] LABS: BASE EXCESS VENOUS 4.3 mmol/l ((-2)-(+3)); BICARBONATE,VENOUS 30 mmol/l (19-25); O2 DELIVERY DEVICE ROOM AIR; O2 SATURATION VENOUS 34.6 % (60-80); PCO2 VENOUS 52 mmHg (41-51); PH,VENOUS 7.38 (7.31-7.41); PO2 VENOUS 25 mmHg (35-42)
[2022-01-15 23:53] LABS: O2 FLOW RATE 0
[2022-01-16 00:16] LABS: AMPHETAMINES,URINE NEGATIVE (NEGATIVE); BARBITURATES,URINE NEGATIVE (NEGATIVE); BENZODIAZEPINE,URINE NEGATIVE (NEGATIVE); MDMA (ECSTASY), URINE NEGATIVE (NEGATIVE); METHADONE,URINE NEGATIVE (NEGATIVE); METHAMPHETAMINES,URINE NEGATIVE (NEGATIVE); OPIATES,URINE NEGATIVE (NEGATIVE); OXYCODONE,URINE NEGATIVE (NEGATIVE); PHENCYCLIDINE,URINE NEGATIVE (NEGATIVE); TCA,URINE POSITIVE (NEGATIVE)
[2022-01-16 00:16] LABS: ANION GAP 12.6 mEq/L (7-13); CHLORIDE,CL 101 mmol/L (98-107); SODIUM,NA 139 mmol/L (136-145)
[2022-01-16 00:42] LABS: CORONAVIRUS COVID-19 NAA NEGATIVE (NEGATIVE)
[2022-01-16] MEDS ORDERED: Insulin Regular, Human 100 Units/ML 3 ML Vial IV ONE (00:58)
[2022-01-16] MEDS ORDERED: Glucagon,Human Recombinant 1 MG Vial IM PRN (00:58)
[2022-01-16] MEDS ORDERED: 50% Dextrose in Water 50 ML Syringe IVPUSH PRN (00:58)
[2022-01-16] MEDS ORDERED: Iopamidol 612 MG/ML 100 ML Bottle IVPUSH ONE (01:01)
[2022-01-16] MEDS ORDERED: Albuterol/Ipratropium 3.0-0.5 MG/3 ML Neb Soln NEB ONE (01:05)
[2022-01-16] MEDS ORDERED: Ketorolac 30 MG/ML SDV IVPUSH ONE (01:19)
[2022-01-16] MEDS ORDERED: Sodium Chloride 0.9% 1,000 ML IV ONE (01:21)
[2022-01-16] MEDS ORDERED: fentaNYL 100 MCG/2 ML SDV IVPUSH ONE (02:38)
== END 2022-01-16 03:22 | disposition home or self-care (01) ==
LOC: DL.ED 22:56
DX: J42 Unspecified chronic bronchitis (principal); E11.65 Type 2 diabetes mellitus with hyperglycemia; E78.00 Pure hypercholesterolemia, unspecified; I10 Essential (primary) hypertension; R53.83 Other fatigue; G58.9 Mononeuropathy, unspecified; E04.1 Nontoxic single thyroid nodule; K21.9 Gastro-esophageal reflux disease without esophagitis; E11.9 Type 2 diabetes mellitus without complications; E66.9 Obesity, unspecified; Z79.899 Other long term (current) drug therapy; Z72.0 Tobacco use; Z20.822 Contact with and (suspected) exposure to COVID-19; Z68.43 Body mass index [BMI] 50.0-59.9, adult
CPT/HCPCS: 0240U; 36415; 71045; 71260; 80053; 80305-QW; 81003; 82150; 82803; 82947; 83605; 83690; 83880; 84443; 84484; 84703; 85025; 85379; 93005; 93010; 96374; 96375; 99284; 99284-25; J1815-GY; J1885; J3010; J7030; J7620-GY; Q9967

== ENCOUNTER 2022-04-29 09:41 | Emergency (ER) | payer OTHER, MEDICAID ==
[2022-04-29 11:05] LABS: PTT,PARTIAL THROMBOPLSTIN TIME 28.8 SEC (22.0-34.0)
[2022-04-29 11:06] LABS: ANION GAP 12.8 mEq/L (7-13)
[2022-04-29] MEDS ORDERED: Iopamidol 612 MG/ML 100 ML Bottle IVPUSH ONE (11:48)
[2022-04-29] MEDS ORDERED: Ketorolac 30 MG/ML SDV IVPUSH ONE (13:12)
== END 2022-04-29 14:10 | disposition home or self-care (01) ==
LOC: DL.ED 09:41
DX: S30.1XXA Contusion of abdominal wall, initial encounter (principal); N83.202 Unspecified ovarian cyst, left side; N92.6 Irregular menstruation, unspecified; L76.82 Other postprocedural complications of skin and subcutaneous tissue; K59.01 Slow transit constipation; J45.909 Unspecified asthma, uncomplicated; E11.21 Type 2 diabetes mellitus with diabetic nephropathy; I10 Essential (primary) hypertension; F17.210 Nicotine dependence, cigarettes, uncomplicated; E66.9 Obesity, unspecified; Z68.30 Body mass index [BMI] 30.0-30.9, adult; Z79.899 Other long term (current) drug therapy; Z90.49 Acquired absence of other specified parts of digestive tract; V89.2XXA Person injured in unspecified motor-vehicle accident, traffic, initial encounter; Y92.410 Unspecified street and highway as the place of occurrence of the external cause
CPT/HCPCS: 36415; 74177; 80053; 81001; 81025; 82150; 83690; 85025; 85610; 85730; 86140; 87210; 96374; 99284; J1885; Q9967